=== PATIENT | male | born 1990 | race African-American/Black ===

== ENCOUNTER 2017-09-05 01:43 | Emergency (ER) | payer SELFPAY ==
[~2017-09-05] VITALS: Ht 177.8 cm; Wt 68.0 kg
[2017-09-05 01:43] VITALS: BP 155/82
--- NOTE | 2017-09-05 05:36 | PHYS DOC ---
Past Medical History Past Medical History: Anxiety Past Surgical History: No Surgical History Alcohol Use: None Drug Use: None Adult General Chief Complaint Chief Complaint: ANXIETY/PANIC ATTACK HPI HPI Patient is a 27 year old -[place] male who presents with anxiety, panic attack. Symptoms woke patient from sleep 3 minutes prior to ED arrival. Patient reports palpitations, racing thoughts, earrings fearing and anxiety. Symptoms persisted upon EMS arrival. Patient recently started on citalopram and has had 2 doses.Patient currently denies symptoms. States he has had prior episodes which are shorter duration and less intense. No HI or SI. [] Review of Systems Review of Systems Review symptoms as per history of present illness. All other review symptoms are negative. [] All other systems were reviewed and found to be within normal limits, except as documented in this note. Allergies Allergies Allergies Coded Allergies Type Severity Reaction Last Updated Verified No Known Drug Allergies 09/05/17 No Physical Exam Physical Exam Constitutional: Well developed, well nourished, no acute distress, non-toxic appearance. [] HENT: Normocephalic, atraumatic, bilateral external ears normal, oropharynx moist, no oral exudates, nose normal. [] Eyes: PERRLA, EOMI, conjunctiva normal, no discharge. [] Neck: Normal range of motion, no tenderness, supple, no stridor. [] Cardiovascular:Heart rate regular rhythm, no murmur [] Lungs & Thorax: Bilateral breath sounds clear to auscultation [] Abdomen: Bowel sounds normal, soft, no tenderness, no masses, no pulsatile masses. [] Skin: Warm, dry, no erythema, no rash. [] Back: No tenderness, no CVA tenderness. [] Extremities: No tenderness, no cyanosis, no clubbing, ROM intact, no edema. [] Neurologic: Alert and oriented X 3, normal motor function, normal sensory function, no focal deficits noted. [] Psychologic: Affect normal, judgement normal, mood normal. [] Current Patient Data Vital Signs Vital Signs Date Time Temp Pulse Resp B/P (MAP) Pulse Ox O2 Delivery O2 Flow Rate FiO2 09/05/17 01:43 97.8 109 20 155/82 (106) 99 Room Air 97.8 EKG EKG [] Radiology/Procedures Radiology/Procedures [] Course & Med Decision Making Course & Med Decision Making Pertinent Labs and Imaging studies reviewed. (See chart for details) [Acute anxiety/panic episode resolved prior to ED arrival. Recommend follow-up with PCP.] Dragon Disclaimer Dragon Disclaimer This electronic medical record was generated, in whole or in part, using a voice recognition dictation system. Departure Departure Impression: Primary Impression: Anxiety attack Disposition: 01 HOME, SELF-CARE Condition: GOOD Patient Instructions: Anxiety and Panic Attacks, [id number] Additional Instructions: You were evaluated in the ED for anxiety and panic. Please stop smoking and follow up with your PCP. RODY MOHAMUD DO Sep 05, 2017 05:36
== END 2017-09-05 03:31 | disposition home or self-care (01) ==
LOC: ER 01:43
DX: F41.0 Panic disorder [episodic paroxysmal anxiety] (principal)
CPT/HCPCS: 99284